=== PATIENT | female | born 1970 | race Caucasian/White ===

== ENCOUNTER 2019-04-24 15:26 | Emergency (ER) | payer OTHER ==
[~2019-04-24] VITALS: Ht 162.6 cm; Wt 86.4 kg
[2019-04-24 15:30] VITALS: TEMP 98.3
[2019-04-24] MEDS ORDERED: [UNRECOGNIZED DRUG - CODE] PO (16:58)
[2019-04-24] MEDS ORDERED: XOPENEX HF0.045 MG/A IH (16:59)
[2019-04-24] MEDS ORDERED: OSCAL 500 TAB500 MG PO (16:59)
[2019-04-24] MEDS ORDERED: MULTI VITAMINS1 TAB PO (17:00)
[2019-04-24] MEDS ORDERED: EPA FISH OIL1 SGL PO (17:00)
[2019-04-24] MEDS ORDERED: OSTEO-BI-FLEX 21 TAB PO (17:00)
[2019-04-24] MEDS ORDERED: CLARITIN 1010 MG/TAB PO (17:00)
[2019-04-24 17:14] VITALS: BP 104/75; PULSE 90
== END 2019-04-24 17:15 | disposition home or self-care (01) ==
LOC: COL.ER 15:26
DX: M79.661 Pain in right lower leg (principal); E03.9 Hypothyroidism, unspecified; Z90.89 Acquired absence of other organs; Z90.49 Acquired absence of other specified parts of digestive tract